=== PATIENT | male | born 1990 | race Caucasian/White ===

== ENCOUNTER 2022-11-23 22:42 | Emergency (ER) | payer BC ==
[2022-11-23] MEDS ORDERED: Sodium Chloride 0.9% 1,000 ML IV ONE (22:47)
[2022-11-23] MEDS ORDERED: Ketorolac 30 MG/ML SDV IVPUSH ONE (22:47)
[2022-11-23] MEDS ORDERED: Morphine 4 MG/ML Syringe IVPUSH ONE (22:47)
[2022-11-23] MEDS ORDERED: Ondansetron 4 MG/2 ML SDV IVPUSH ONE (22:47)
[2022-11-23 23:04] LABS: BASOPHILS PERCENT AUTO 0.4 % (0.0-1.5); EOSINOPHILS ABSOLUTE AUTO 0.2 K/uL (0.0-0.7); HEMATOCRIT 48.4 % (38.0-50.0); HEMOGLOBIN 17.3 g/dL (13.0-17.0); LYMPHOCYTES ABSOLUTE AUTO 4.3 K/uL (0.6-2.4); LYMPHOCYTES PERCENT AUTO 44.8 % (16.0-40.0); MEAN CORPUSCULAR HEMOGLOBIN 34.1 pg (27.0-32.0); MEAN CORPUSCULAR HGB CONC 35.7 g/dL (31.0-37.0); MEAN CORPUSCULAR VOLUME 95.5 fL (80.0-98.0); MONOCYTES ABSOLUTE AUTO 1.1 K/uL (0.0-0.8); NEUTROPHILS PERCENT AUTO 41.8 % (48.0-80.0); PLATELET COUNT,PLT 221 K/uL (150-400); RED BLOOD CELL COUNT 5.07 M/uL (4.50-5.90); WHITE BLOOD CELL COUNT,WBC 9.53 K/uL (4.0-11.0)
[2022-11-23] MEDS ORDERED: Iopamidol 755 MG/ML 500 ML Multipack Bottle IVPUSH ONE (23:04)
[2022-11-23] MEDS ORDERED: LORazepam 2 MG/ML SDV IVPUSH ONE (23:32)
[2022-11-23 23:34] LABS: APPEARANCE,URINE CLEAR; BILIRUBIN,URINE NEGATIVE (NEGATIVE); COLOR,URINE YELLOW; GLUCOSE,URINE NEGATIVE (NEGATIVE); KETONES,URINE TRACE mg/dL (NEGATIVE); LEUKOCYTE ESTERASE,URINE NEGATIVE (NEGATIVE); NITRITE,URINE NEGATIVE (NEGATIVE); OCCULT BLOOD,URINE SMALL (NEGATIVE); PH,URINE 7.5 (5.0-8.0); PROTEIN,URINE 30 mg/dL (NEGATIVE); UROBILINOGEN,URINE 0.2 EU/dL (<2.0)
[2022-11-23 23:45] LABS: BACTERIA,URINE RARE (NEGATIVE); EPITHELIAL CELLS,URINE OCCASIONAL (NONE-FEW); WBC,URINE 0-2 (0-5/HPF)
[2022-11-23 23:46] LABS: A/G RATIO 1.2 (0.9-1.6); ALBUMIN 4.4 g/dL (3.4-5.0); BILIRUBIN TOTAL 0.4 mg/dL (0.2-1.0); CALCIUM 9.3 mg/dL (8.5-10.1); CARBON DIOXIDE,CO2 24.4 mmol/L (21.0-32.0); CREATININE 1.1 mg/dL (0.8-1.3); EST CRCL DRUG DOSING (CG) 92.41 mL/min; POTASSIUM,K 4.2 mmol/L (3.5-5.1)
== END 2022-11-24 00:45 | disposition home or self-care (01) ==
LOC: MW.ED 22:42
DX: R10.31 Right lower quadrant pain (principal)
CPT/HCPCS: 36415; 74177; 80053; 80307; 81001; 85025; 96361; 96374; 96375; 99284; J1885; J2060; J2270; J2405; J7030; Q9967

== ENCOUNTER 2023-01-28 01:32 | Emergency (ER) | payer SELFPAY ==
[2023-01-28] MEDS ORDERED: Ondansetron 4 MG/2 ML SDV IVPUSH ONE (01:36)
[2023-01-28] MEDS ORDERED: Morphine 4 MG/ML Syringe IVPUSH ONE (01:36)
[2023-01-28] MEDS ORDERED: Lactated Ringers 1,000 ML IV ONE (01:37)
[2023-01-28 01:43] LABS: BASOPHILS PERCENT AUTO 0.4 % (0.0-1.5); EOSINOPHILS ABSOLUTE AUTO 0.2 K/uL (0.0-0.7); EOSINOPHILS PERCENT AUTO 2.6 % (0.0-7.0); HEMATOCRIT 46.2 % (38.0-50.0); HEMOGLOBIN 16.2 g/dL (13.0-17.0); LYMPHOCYTES ABSOLUTE AUTO 3.6 K/uL (0.6-2.4); LYMPHOCYTES PERCENT AUTO 42.6 % (16.0-40.0); MEAN CORPUSCULAR HEMOGLOBIN 34.6 pg (27.0-32.0); MEAN CORPUSCULAR HGB CONC 35.1 g/dL (31.0-37.0); MEAN CORPUSCULAR VOLUME 98.7 fL (80.0-98.0); MONOCYTES ABSOLUTE AUTO 0.6 K/uL (0.0-0.8); MONOCYTES PERCENT AUTO 6.5 % (0.0-15.0); NEUTROPHILS ABSOLUTE AUTO 4.1 K/uL (1.4-5.7); NEUTROPHILS PERCENT AUTO 47.9 % (48.0-80.0); NRBC ABSOLUTE 0 K/uL; PLATELET COUNT,PLT 183 K/uL (150-400); RED BLOOD CELL COUNT 4.68 M/uL (4.50-5.90); WHITE BLOOD CELL COUNT,WBC 8.46 K/uL (4.0-11.0)
[2023-01-28 02:06] LABS: A/G RATIO 1.1 (0.9-1.6); BILIRUBIN TOTAL 0.5 mg/dL (0.2-1.0); CALCIUM 8.6 mg/dL (8.5-10.1); CARBON DIOXIDE,CO2 24.7 mmol/L (21.0-32.0); EST CRCL DRUG DOSING (CG) 105.07 mL/min; POTASSIUM,K 4.1 mmol/L (3.5-5.1); PROTEIN TOTAL,TP 7.6 g/dL (6.4-8.2)
[2023-01-28] MEDS ORDERED: Iopamidol 755 MG/ML 500 ML Multipack Bottle IVPUSH STA (02:11)
[2023-01-28] MEDS ORDERED: Acetaminophen/oxyCODONE 325-5 MG Tab PO ONE (03:25)
[2023-01-28] MEDS ORDERED: Ibuprofen 600 MG Tab PO ONE (03:25)
== END 2023-01-28 03:43 | disposition home or self-care (01) ==
LOC: MW.ED 01:32
DX: S39.92XA Unspecified injury of lower back, initial encounter (principal); R93.5 Abnormal findings on diagnostic imaging of other abdominal regions, including retroperitoneum; W10.8XXA Fall (on) (from) other stairs and steps, initial encounter
CPT/HCPCS: 36415; 70450; 71260; 72125; 72128; 72131; 74177; 80053; 80307; 85025; 96361; 96374; 96375; 99284; J2270; J2405; J7120; Q9967

== ENCOUNTER 2023-04-18 03:02 | Inpatient (IN) | payer SELFPAY ==
[2023-04-18] MEDS ORDERED: Sodium Chloride 0.9% 2.5 ML Syringe FLUSH PRN ×2 (03:13→07:53)
[2023-04-18] MEDS ORDERED: Sodium Chloride 0.9% 10 ML Syringe FLUSH PRN ×2 (03:13→07:53)
[2023-04-18] MEDS ORDERED: Sodium Chloride 0.9% 1,000 ML IV ONE (03:14)
[2023-04-18] MEDS ORDERED: Morphine 4 MG/ML Syringe IVPUSH ONE ×2 (03:14→07:45)
[2023-04-18 03:30] LABS: BASOPHILS ABSOLUTE AUTO 0.07 K/uL (0.00-0.20); BASOPHILS PERCENT AUTO 0.8 % (0.0-1.0); EOSINOPHILS ABSOLUTE AUTO 0.28 K/uL (0.00-0.45); EOSINOPHILS PERCENT AUTO 3.1 % (0.0-6.0); HEMATOCRIT 49.5 % (42.0-52.0); HEMOGLOBIN 17.6 g/dL (14.0-18.0); IMMATURE GRAN ABSOLUTE AUTO 0.07 K/uL (0.00-0.05); IMMATURE GRAN PERCENT AUTO 0.8 % (0.0-0.4); LYMPHOCYTES ABSOLUTE AUTO 3.39 K/uL (1.00-4.80); LYMPHOCYTES PERCENT AUTO 37.7 % (24.0-44.0); MEAN CORPUSCULAR HEMOGLOBIN 34.6 pg (28.0-32.0); MEAN CORPUSCULAR HGB CONC 35.6 g/dL (32.0-36.0); MEAN CORPUSCULAR VOLUME 97.2 fL (83.0-99.0); MEAN PLATELET VOLUME 9.5 fL (9.4-12.4); MONOCYTES ABSOLUTE AUTO 0.57 K/uL (0.00-0.80); MONOCYTES PERCENT AUTO 6.3 % (0.0-8.0); NEUTROPHILS ABSOLUTE AUTO 4.62 K/uL (1.80-7.70); NEUTROPHILS PERCENT AUTO 51.3 % (41.0-71.0); PLATELET COUNT,PLT 218 K/uL (150-400); RED BLOOD CELL COUNT 5.09 M/uL (4.52-5.90)
[2023-04-18 03:51] LABS: ALBUMIN 4.2 g/dL (3.4-5.0); BILIRUBIN TOTAL 0.3 mg/dL (0.2-1.0); CREATININE 1.1 mg/dL (0.8-1.3); EST CRCL DRUG DOSING (CG) 98.62 mL/min; POTASSIUM,K 3.8 mmol/L (3.5-5.1); PROTEIN TOTAL,TP 8.3 g/dL (6.4-8.2)
[2023-04-18] MEDS ORDERED: Morphine 4 MG/ML Syringe IM ONE (04:13)
[2023-04-18] MEDS ORDERED: Naloxone 0.4 MG/ML SDV IVPUSH PRN ×3 (04:13→13:26)
[2023-04-18] MEDS ORDERED: Iopamidol 755 Mg/ML 100 ML Bottle IVPUSH ONE (04:21)
[2023-04-18 04:49] LABS: APPEARANCE,URINE CLEAR; BILIRUBIN,URINE NEGATIVE (NEGATIVE); COLOR,URINE YELLOW; GLUCOSE,URINE NEGATIVE (NEGATIVE); KETONES,URINE TRACE mg/dL (NEGATIVE); LEUKOCYTE ESTERASE,URINE NEGATIVE (NEGATIVE); NITRITE,URINE NEGATIVE (NEGATIVE); OCCULT BLOOD,URINE NEGATIVE (NEGATIVE); PH,URINE 7.5 (5.0-8.0); PROTEIN,URINE NEGATIVE (NEGATIVE); UROBILINOGEN,URINE 0.2 EU/dL (<2.0)
[2023-04-18] MEDS ORDERED: Lactated Ringers 1,000 ML IV SCH (06:30)
[2023-04-18] MEDS ORDERED: Nicotine 21 MG/24 Hr Patch TRDERM ONE (06:30)
[2023-04-18] MEDS ORDERED: Ondansetron 4 MG/2 ML SDV IVPUSH ONE ×2 (06:32→07:51)
[2023-04-18] MEDS ORDERED: LORazepam 2 MG/ML SDV IVPUSH PRN (07:55)
[2023-04-18] MEDS ORDERED: Heparin Sodium 5,000 Units/ML Vial SUBCUT SCH (08:00)
[2023-04-18] MEDS: Morphine 4 MG/ML Syringe IVPUSH PRN ×2 (08:11→10:31)
[2023-04-18] MEDS: Ondansetron 4 MG/2 ML SDV IVPUSH PRN ×3 (08:12→19:55)
[2023-04-18] MEDS ORDERED: Thiamine 100 MG in Sodium Chloride 0.9% 100 ML IV SCH (09:00)
[2023-04-18] MEDS: Pantoprazole 40 MG in Sodium Chloride 0.9% 10 ML IVPUSH SCH (09:13)
[2023-04-18] MEDS: Thiamine 200 MG/2 ML MDV IVPUSH SCH (09:15)
[2023-04-18] MEDS: Folic Acid 1 MG/0.2 ML UD Syringe IV SCH (09:16)
[2023-04-18] MEDS: Phenol 1.4% Oral Spray 177 ML Bottle MUCMEM PRN ×4 (10:38→22:31)
[2023-04-18] MEDS: HYDROmorphone 1 MG/ML Syringe IVPUSH PRN ×3 (12:55→19:45)
[2023-04-18] MEDS ORDERED: Ropivacaine 0.5% 5 MG/ML 30 ML SDV ONE (13:04)
[2023-04-18] MEDS ORDERED: Ketamine 500 mg/10 ML MDV ONE (13:05)
[2023-04-18] MEDS ORDERED: Propofol 200 MG/20 ML SDV ONE (13:05)
[2023-04-18] MEDS ORDERED: fentaNYL 250 MCG/5 ML SDV ONE (13:05)
[2023-04-18] MEDS ORDERED: Water For Injection, Sterile 40 ML ONE ×2 (13:14→13:16)
[2023-04-18] MEDS ORDERED: Midazolam 1 MG/ML 2 ML SDV ONE (13:16)
[2023-04-18] MEDS ORDERED: Metoclopramide 10 MG/2 ML SDV IVPUSH PRN (13:26)
[2023-04-18] MEDS ORDERED: Morphine 2 MG/ML SYRINGE IVPUSH PRN (13:26)
[2023-04-18] MEDS ORDERED: droPERidol 5 MG/2 ML SDV IVPUSH PRN (13:26)
[2023-04-18] MEDS ORDERED: HYDROmorphone 1 MG/ML Syringe IVPUSH PRN (13:26)
[2023-04-18] MEDS ORDERED: fentaNYL 50 MCG/ML SDV IVPUSH PRN (13:26)
[2023-04-18] MEDS ORDERED: Albuterol 0.083% 2.5 MG/3 ML Neb Soln NEB PRN (13:26)
[2023-04-18] MEDS ORDERED: Ondansetron 4 MG/2 ML SDV IVPUSH PRN (13:26)
[2023-04-18 13:27] LABS: LACTIC ACID 2.1 mmol/L (0.4-2.0)
[2023-04-18] MEDS ORDERED: Lactated Ringers 1,000 ML IV ONE (13:29)
[2023-04-18] MEDS ORDERED: Bupivacaine 0.5% 30 ML SDV ONE (13:51)
[2023-04-18] MEDS ORDERED: Lidocaine 2% 11 ML Jelly Filled Syringe ONE (14:01)
[2023-04-18] MEDS ORDERED: cefOXitin 1 GM Vial ONE (14:15)
[2023-04-18] MEDS ORDERED: Sugammadex Sodium 200 MG/2 ML VIAL ONE (14:48)
[2023-04-18 15:12] LABS: BODY FLUID TYPE PER
[2023-04-18 15:39] LABS: APPEARANCE,BODY FLUID CLEAR; COLOR,BODY FLUID YELLOW; MONONUCLEAR, BODY FLUID 85.5 %; POLYMORPHONUCLEAR, BODY FLUID 14.5 %; RBC,BODY FLUID < 3000 /uL; WBC BODY FLUID 575 /uL
[2023-04-18] MEDS: Lactated Ringers 1,000 ML IV SCH ×3 (15:59→23:57)
[2023-04-18] MEDS ORDERED: cefTRIAXone 2 GM in Sodium Chloride 0.9% 50 ML IV ONE (16:00)
[2023-04-18 16:07] LABS: GLUCOSE,BODY FLUID 102 mg/dL; LACTATE DEHYDROGENASE,BODY FL 176 U/L; PROTEIN,BODY FLUID 5.1 g/dL; TRIGLYCERIDES,BODY FLUID 36 mg/dL
[2023-04-19] MEDS: HYDROmorphone 1 MG/ML Syringe IVPUSH PRN ×4 (00:42→23:21)
[2023-04-19] MEDS: Ondansetron 4 MG/2 ML SDV IVPUSH PRN ×4 (00:43→23:23)
[2023-04-19] MEDS: Phenol 1.4% Oral Spray 177 ML Bottle MUCMEM PRN ×2 (02:07→08:14)
[2023-04-19 06:40] LABS: BASOPHILS ABSOLUTE AUTO 0.03 K/uL (0.00-0.20); BASOPHILS PERCENT AUTO 0.4 % (0.0-1.0); EOSINOPHILS ABSOLUTE AUTO 0.17 K/uL (0.00-0.45); EOSINOPHILS PERCENT AUTO 2.1 % (0.0-6.0); HEMATOCRIT 43.4 % (42.0-52.0); HEMOGLOBIN 15.2 g/dL (14.0-18.0); IMMATURE GRAN ABSOLUTE AUTO 0.02 K/uL (0.00-0.05); IMMATURE GRAN PERCENT AUTO 0.3 % (0.0-0.4); LYMPHOCYTES ABSOLUTE AUTO 1.42 K/uL (1.00-4.80); MEAN CORPUSCULAR HEMOGLOBIN 34.3 pg (28.0-32.0); MEAN PLATELET VOLUME 9.6 fL (9.4-12.4); MONOCYTES ABSOLUTE AUTO 0.75 K/uL (0.00-0.80); MONOCYTES PERCENT AUTO 9.5 % (0.0-8.0); NEUTROPHILS ABSOLUTE AUTO 5.52 K/uL (1.80-7.70); NEUTROPHILS PERCENT AUTO 69.7 % (41.0-71.0); PLATELET COUNT,PLT 167 K/uL (150-400); RED BLOOD CELL COUNT 4.43 M/uL (4.52-5.90); WHITE BLOOD CELL COUNT,WBC 7.91 K/uL (3.9-11.3)
[2023-04-19 07:03] LABS: ALBUMIN 3.4 g/dL (3.4-5.0); BILIRUBIN TOTAL 0.8 mg/dL (0.2-1.0); CALCIUM 8.6 mg/dL (8.5-10.1); CARBON DIOXIDE,CO2 27.3 mmol/L (21.0-32.0); EST CRCL DRUG DOSING (CG) 105.07 mL/min; MAGNESIUM 1.8 mg/dL (1.8-2.4); PHOSPHORUS 2.5 mg/dL (2.6-4.7); POTASSIUM,K 3.5 mmol/L (3.5-5.1); PROTEIN TOTAL,TP 6.7 g/dL (6.4-8.2)
[2023-04-19] MEDS: Lactated Ringers 1,000 ML IV SCH ×2 (08:38→17:01)
[2023-04-19] MEDS: Pantoprazole 40 MG in Sodium Chloride 0.9% 10 ML IVPUSH SCH (08:40)
[2023-04-19] MEDS: Folic Acid 1 MG/0.2 ML UD Syringe IV SCH (08:43)
[2023-04-19] MEDS: Thiamine 200 MG/2 ML MDV IVPUSH SCH (08:43)
[2023-04-19] MEDS: Nicotine 21 MG/24 Hr Patch TRDERM SCH (08:55)
[2023-04-20] MEDS: Lactated Ringers 1,000 ML IV SCH ×2 (01:00→08:10)
[2023-04-20 06:51] LABS: BASOPHILS ABSOLUTE AUTO 0.02 K/uL (0.00-0.20); BASOPHILS PERCENT AUTO 0.3 % (0.0-1.0); EOSINOPHILS ABSOLUTE AUTO 0.22 K/uL (0.00-0.45); EOSINOPHILS PERCENT AUTO 3.3 % (0.0-6.0); HEMATOCRIT 40.9 % (42.0-52.0); HEMOGLOBIN 14.4 g/dL (14.0-18.0); IMMATURE GRAN ABSOLUTE AUTO 0.02 K/uL (0.00-0.05); IMMATURE GRAN PERCENT AUTO 0.3 % (0.0-0.4); LYMPHOCYTES ABSOLUTE AUTO 1.85 K/uL (1.00-4.80); LYMPHOCYTES PERCENT AUTO 27.7 % (24.0-44.0); MEAN CORPUSCULAR HEMOGLOBIN 34.7 pg (28.0-32.0); MEAN CORPUSCULAR HGB CONC 35.2 g/dL (32.0-36.0); MEAN CORPUSCULAR VOLUME 98.6 fL (83.0-99.0); MEAN PLATELET VOLUME 10.3 fL (9.4-12.4); MONOCYTES ABSOLUTE AUTO 0.58 K/uL (0.00-0.80); MONOCYTES PERCENT AUTO 8.7 % (0.0-8.0); NEUTROPHILS ABSOLUTE AUTO 3.98 K/uL (1.80-7.70); NEUTROPHILS PERCENT AUTO 59.7 % (41.0-71.0); PLATELET COUNT,PLT 147 K/uL (150-400); RED BLOOD CELL COUNT 4.15 M/uL (4.52-5.90); WHITE BLOOD CELL COUNT,WBC 6.67 K/uL (3.9-11.3)
[2023-04-20 07:38] LABS: A/G RATIO 0.9 (0.9-1.6); BILIRUBIN TOTAL 0.8 mg/dL (0.2-1.0); CALCIUM 8.2 mg/dL (8.5-10.1); CARBON DIOXIDE,CO2 26.6 mmol/L (21.0-32.0); CREATININE 0.9 mg/dL (0.8-1.3); EST CRCL DRUG DOSING (CG) 116.74 mL/min; MAGNESIUM 1.8 mg/dL (1.8-2.4); PHOSPHORUS 2.5 mg/dL (2.6-4.7); POTASSIUM,K 3.6 mmol/L (3.5-5.1); PROTEIN TOTAL,TP 6.2 g/dL (6.4-8.2)
[2023-04-20] MEDS: Thiamine 200 MG/2 ML MDV IVPUSH SCH (08:10)
[2023-04-20] MEDS: Pantoprazole 40 MG in Sodium Chloride 0.9% 10 ML IVPUSH SCH (08:11)
[2023-04-20] MEDS: Nicotine 21 MG/24 Hr Patch TRDERM SCH (08:17)
[2023-04-20] MEDS: Folic Acid 1 MG/0.2 ML UD Syringe IV SCH (08:21)
[2023-04-20] MEDS ORDERED: Phosphorus #1 250 MG Tab PO SCH (09:00)
== END 2023-04-20 12:55 | disposition home or self-care (01) | DRG 327 ==
LOC: MW.ED 03:02 → MW.MS 06:16
PROVIDERS: ADMIT Internal Medicine; ATTEND Internal Medicine
PROC: 0DJ04ZZ Inspection of Upper Intestinal Tract, Percutaneous Endoscopic Approach (ICD-10-PCS; 2023-04-18)
PROC: 0D9670Z Drainage of Stomach with Drainage Device, Via Natural or Artificial Opening (ICD-10-PCS; principal; 2023-04-18 13:15)
DX: K56.609 Unspecified intestinal obstruction, unspecified as to partial versus complete obstruction (principal); F10.139 Alcohol abuse with withdrawal, unspecified; R18.8 Other ascites; R10.13 Epigastric pain; F17.210 Nicotine dependence, cigarettes, uncomplicated; K76.0 Fatty (change of) liver, not elsewhere classified
CPT/HCPCS: 36415; 43752; 74177; 74177-26; 74250; 74250-26; 80053; 80307; 81003; 82945; 82947; 83605; 83615; 83690; 83735; 84100; 84157; 84478; 85025; 86850; 86900; 86901; 87070; 87205; 89050; 96361; 96372; 96374; 99222; 99232; 99239; 99284; 99285-25; A9270-GY; C9113; J0694; J0696; J1170; J1644; J2060; J2250; J2270; J2405; J2704; J2795; J3010; J3411; J3490; J7030; J7120; Q9967

== ENCOUNTER 2023-05-10 15:23 | Observation (INO) | payer SELFPAY ==
[2023-05-10] MEDS ORDERED: Sodium Chloride 0.9% 2.5 ML Syringe FLUSH PRN (15:45)
[2023-05-10] MEDS ORDERED: Sodium Chloride 0.9% 10 ML Syringe FLUSH PRN (15:45)
[2023-05-10] MEDS ORDERED: Lactated Ringers 1,000 ML IV STA ×2 (15:46→16:16)
[2023-05-10 15:52] LABS: BASOPHILS ABSOLUTE AUTO 0.08 K/uL (0.00-0.20); EOSINOPHILS ABSOLUTE AUTO 0.07 K/uL (0.00-0.45); EOSINOPHILS PERCENT AUTO 0.8 % (0.0-6.0); HEMATOCRIT 48.1 % (42.0-52.0); HEMOGLOBIN 17.2 g/dL (14.0-18.0); IMMATURE GRAN ABSOLUTE AUTO 0.07 K/uL (0.00-0.05); IMMATURE GRAN PERCENT AUTO 0.8 % (0.0-0.4); LYMPHOCYTES PERCENT AUTO 26.5 % (24.0-44.0); MEAN CORPUSCULAR HEMOGLOBIN 34.3 pg (28.0-32.0); MEAN CORPUSCULAR HGB CONC 35.8 g/dL (32.0-36.0); MEAN CORPUSCULAR VOLUME 95.8 fL (83.0-99.0); MONOCYTES PERCENT AUTO 9.6 % (0.0-8.0); NEUTROPHILS ABSOLUTE AUTO 5.09 K/uL (1.80-7.70); NEUTROPHILS PERCENT AUTO 61.3 % (41.0-71.0); PLATELET COUNT,PLT 196 K/uL (150-400); RED BLOOD CELL COUNT 5.02 M/uL (4.52-5.90); WHITE BLOOD CELL COUNT,WBC 8.31 K/uL (3.9-11.3)
[2023-05-10] MEDS ORDERED: Morphine 4 MG/ML Syringe IVPUSH STA (15:52)
[2023-05-10] MEDS ORDERED: Ondansetron 4 MG/2 ML SDV IVPUSH STA (15:52)
[2023-05-10 16:15] LABS: INR < 0.93 (0.86-1.11); PTT,PARTIAL THROMBOPLSTIN TIME 25.9 SEC (23.9-30.7)
[2023-05-10] MEDS ORDERED: Piperacillin/Tazobactam 3.375 GM in Sodium Chloride 0.9% 100 ML IV STA (16:17)
[2023-05-10] MEDS ORDERED: HYDROmorphone 1 MG/ML Syringe IVPUSH STA (16:17)
[2023-05-10 16:20] LABS: A/G RATIO 1.2 (0.9-1.6); ALBUMIN 4.6 g/dL (3.4-5.0); BILIRUBIN TOTAL 0.5 mg/dL (0.2-1.0); CALCIUM 9.8 mg/dL (8.5-10.1); CARBON DIOXIDE,CO2 16.8 mmol/L (21.0-32.0); CREATININE 1.3 mg/dL (0.8-1.3); EST CRCL DRUG DOSING (CG) 80.82 mL/min; MAGNESIUM 2.1 mg/dL (1.8-2.4); POTASSIUM,K 3.8 mmol/L (3.5-5.1); PROTEIN TOTAL,TP 8.4 g/dL (6.4-8.2)
[2023-05-10] MEDS ORDERED: Iopamidol 755 MG/ML 500 ML Multipack Bottle IVPUSH STA (16:46)
[2023-05-10] MEDS ORDERED: Nicotine 21 MG/24 Hr Patch TRDERM STA (17:36)
[2023-05-10] MEDS ORDERED: Thiamine 100 MG in Sodium Chloride 0.9% 100 ML IV STA (17:59)
[2023-05-10] MEDS ORDERED: Dextrose 5%-0.9% NaCl 1,000 ML IV SCH (18:00)
[2023-05-10 18:47] LABS: CORONAVIRUS COVID-19 NAA NEGATIVE (NEGATIVE); INFLUENZA A NAA NEGATIVE (NEGATIVE); INFLUENZA B NAA NEGATIVE (NEGATIVE)
[2023-05-10 20:21] LABS: APPEARANCE,URINE CLEAR; BILIRUBIN,URINE NEGATIVE (NEGATIVE); COLOR,URINE YELLOW; GLUCOSE,URINE NEGATIVE (NEGATIVE); KETONES,URINE 15 mg/dL (NEGATIVE); LEUKOCYTE ESTERASE,URINE NEGATIVE (NEGATIVE); NITRITE,URINE NEGATIVE (NEGATIVE); OCCULT BLOOD,URINE NEGATIVE (NEGATIVE); PH,URINE 5.5 (5.0-8.0); PROTEIN,URINE NEGATIVE (NEGATIVE); UROBILINOGEN,URINE 0.2 EU/dL (<2.0)
== END 2023-05-10 22:03 ==
LOC: MW.ED 15:23 → MW.MS 20:15
PROVIDERS: ADMIT Internal Medicine; ATTEND Internal Medicine
DX: E87.29 Other acidosis (principal); E11.9 Type 2 diabetes mellitus without complications; F41.9 Anxiety disorder, unspecified; Z20.822 Contact with and (suspected) exposure to COVID-19
CPT/HCPCS: 0240U; 36415; 74177; 74177-26; 80053; 81003; 83605; 83690; 83735; 84484; 85025; 85610; 85730; 87040; 93005; 93010; 99284; A9270-GY; J1170; J2270; J2405; J2543; J3411; J3490; J7042; J7120; Q9967

== ENCOUNTER 2023-05-22 09:16 | Day surgery (SDC) | payer SELFPAY ==
[~2023-05-22 09:16] MED LIST: Lactated Ringers 1,000 ML IV SCH; Sodium Chloride 0.9% 10 ML Syringe FLUSH PRN; Sodium Chloride 0.9% 2.5 ML Syringe FLUSH PRN; Sodium Chloride 0.9% 20 ML SDV IV PRN
[2023-05-22] MEDS ORDERED: Propofol 200 MG/20 ML SDV ONE ×2 (12:04→12:21)
[2023-05-22] MEDS ORDERED: Lidocaine 2% 5 ML SDV ONE (12:07)
== END 2023-05-22 13:35 | disposition home or self-care (01) ==
LOC: MW.SDS 09:16
PROVIDERS: ATTEND Surgery
DX: K29.50 Unspecified chronic gastritis without bleeding (principal); D12.0 Benign neoplasm of cecum; D12.3 Benign neoplasm of transverse colon; K57.30 Diverticulosis of large intestine without perforation or abscess without bleeding; K52.9 Noninfective gastroenteritis and colitis, unspecified; F17.200 Nicotine dependence, unspecified, uncomplicated; K56.600 Partial intestinal obstruction, unspecified as to cause; R19.4 Change in bowel habit
CPT/HCPCS: 43239; 45380; J2704; J7120; 00813; J3490

== ENCOUNTER 2023-12-14 16:57 | Emergency (ER) | payer SELFPAY ==
[2023-12-14] MEDS: Sodium Chloride 0.9% 1,000 ML IV ONE (17:28)
[2023-12-14] MEDS: Ondansetron 4 MG/2 ML SDV IVPUSH ONE (17:28)
[2023-12-14 17:35] LABS: BASOPHILS ABSOLUTE AUTO 0.05 K/uL (0.00-0.20); BASOPHILS PERCENT AUTO 0.7 % (0.0-1.0); EOSINOPHILS ABSOLUTE AUTO 0.04 K/uL (0.00-0.45); EOSINOPHILS PERCENT AUTO 0.5 % (0.0-6.0); HEMATOCRIT 44.5 % (42.0-52.0); HEMOGLOBIN 16.2 g/dL (14.0-18.0); IMMATURE GRAN ABSOLUTE AUTO 0.03 K/uL (0.00-0.05); IMMATURE GRAN PERCENT AUTO 0.4 % (0.0-0.4); LYMPHOCYTES ABSOLUTE AUTO 1.81 K/uL (1.00-4.80); LYMPHOCYTES PERCENT AUTO 24.6 % (24.0-44.0); MEAN CORPUSCULAR HEMOGLOBIN 34.5 pg (28.0-32.0); MEAN CORPUSCULAR HGB CONC 36.4 g/dL (32.0-36.0); MEAN CORPUSCULAR VOLUME 94.9 fL (83.0-99.0); MEAN PLATELET VOLUME 9.4 fL (9.4-12.4); MONOCYTES ABSOLUTE AUTO 0.63 K/uL (0.00-0.80); MONOCYTES PERCENT AUTO 8.6 % (0.0-8.0); NEUTROPHILS PERCENT AUTO 65.2 % (41.0-71.0); PLATELET COUNT,PLT 200 K/uL (150-400); RED BLOOD CELL COUNT 4.69 M/uL (4.52-5.90); WHITE BLOOD CELL COUNT,WBC 7.36 K/uL (3.9-11.3)
[2023-12-14 17:57] LABS: A/G RATIO 1.2 (0.9-1.6); ALBUMIN 4.4 g/dL (3.4-5.0); BILIRUBIN TOTAL 0.7 mg/dL (0.2-1.0); CALCIUM 8.8 mg/dL (8.5-10.1); CARBON DIOXIDE,CO2 19.6 mmol/L (21.0-32.0); CREATININE 1.1 mg/dL (0.8-1.3); EST CRCL DRUG DOSING (CG) 91.55 mL/min; POTASSIUM,K 3.2 mmol/L (3.5-5.1); PROTEIN TOTAL,TP 8.1 g/dL (6.4-8.2)
[2023-12-14] MEDS: Ketorolac 30 MG/ML SDV IVPUSH ONE (18:22)
== END 2023-12-14 19:08 | disposition home or self-care (01) ==
LOC: MW.ED 16:57
DX: E87.6 Hypokalemia (principal); E86.0 Dehydration; E11.9 Type 2 diabetes mellitus without complications; Z91.012 Allergy to eggs
CPT/HCPCS: 36415; 80053; 82947; 85025; 93005; 96361; 96374; 96375; 99284; J1885; J2405; J7030; 93010; 99285

== ENCOUNTER 2023-12-26 15:15 | Emergency (ER) | payer SELFPAY | END 2023-12-26 17:29 | disposition home or self-care (01) | LOC: MW.ED 15:15 | DX: S60.221A Contusion of right hand, initial encounter (principal); E11.9 Type 2 diabetes mellitus without complications; Z91.018 Allergy to other foods; W01.0XXA Fall on same level from slipping, tripping and stumbling without subsequent striking against object, initial encounter; Y92.89 Other specified places as the place of occurrence of the external cause; Y99.0 Civilian activity done for income or pay | CPT/HCPCS: 73130-26-RT; 73130-RT; 99283 ==

== ENCOUNTER 2024-02-12 10:13 | Emergency (ER) | payer SELFPAY | END 2024-02-12 11:01 | disposition left against medical advice (07) | LOC: MW.ED 10:13 | DX: Z53.21 Procedure and treatment not carried out due to patient leaving prior to being seen by health care provider (principal) ==

== ENCOUNTER 2024-02-12 12:23 | Emergency (ER) | payer SELFPAY ==
[2024-02-12] MEDS: Cyclobenzaprine 10 MG Tab PO STA (13:18)
== END 2024-02-12 13:45 | disposition left against medical advice (07) ==
LOC: MW.ED 12:23
DX: M79.642 Pain in left hand (principal); E11.9 Type 2 diabetes mellitus without complications; Z91.012 Allergy to eggs; Z75.8 Other problems related to medical facilities and other health care
CPT/HCPCS: 73130; 99284; A9270

== ENCOUNTER 2024-02-13 13:17 | Emergency (ER) | payer SELFPAY ==
[2024-02-13] MEDS: Midazolam 1 MG/ML 2 ML SDV IVPUSH ONE (14:49)
[2024-02-13] MEDS: LORazepam 2 MG/ML SDV IM ONE ×3 (14:49→17:01)
[2024-02-13 14:55] LABS: BASOPHILS ABSOLUTE AUTO 0.06 K/uL (0.00-0.20); BASOPHILS PERCENT AUTO 0.7 % (0.0-1.0); EOSINOPHILS ABSOLUTE AUTO 0.02 K/uL (0.00-0.45); EOSINOPHILS PERCENT AUTO 0.2 % (0.0-6.0); HEMATOCRIT 47.3 % (42.0-52.0); HEMOGLOBIN 16.9 g/dL (14.0-18.0); IMMATURE GRAN ABSOLUTE AUTO 0.02 K/uL (0.00-0.05); IMMATURE GRAN PERCENT AUTO 0.2 % (0.0-0.4); LYMPHOCYTES ABSOLUTE AUTO 1.49 K/uL (1.00-4.80); LYMPHOCYTES PERCENT AUTO 18.1 % (24.0-44.0); MEAN CORPUSCULAR HEMOGLOBIN 34.5 pg (28.0-32.0); MEAN CORPUSCULAR HGB CONC 35.7 g/dL (32.0-36.0); MEAN CORPUSCULAR VOLUME 96.5 fL (83.0-99.0); MEAN PLATELET VOLUME 9.4 fL (9.4-12.4); MONOCYTES PERCENT AUTO 7.3 % (0.0-8.0); NEUTROPHILS ABSOLUTE AUTO 6.02 K/uL (1.80-7.70); NEUTROPHILS PERCENT AUTO 73.5 % (41.0-71.0); PLATELET COUNT,PLT 177 K/uL (150-400); WHITE BLOOD CELL COUNT,WBC 8.21 K/uL (3.9-11.3)
[2024-02-13 15:10] LABS: INR 0.96 (0.86-1.11)
[2024-02-13 15:26] LABS: ALBUMIN 4.3 g/dL (3.4-5.0); BILIRUBIN TOTAL 0.8 mg/dL (0.2-1.0); CALCIUM 9.4 mg/dL (8.5-10.1); CREATININE 1.1 mg/dL (0.8-1.3); EST CRCL DRUG DOSING (CG) 91.55 mL/min; POTASSIUM,K 3.9 mmol/L (3.5-5.1); PROTEIN TOTAL,TP 8.4 g/dL (6.4-8.2)
[2024-02-13 15:28] LABS: A/G RATIO 1.1 (0.9-1.6)
== END 2024-02-13 18:54 | disposition home or self-care (01) ==
LOC: MW.ED 13:17
DX: G56.32 Lesion of radial nerve, left upper limb (principal); E11.9 Type 2 diabetes mellitus without complications; F17.210 Nicotine dependence, cigarettes, uncomplicated; Z91.012 Allergy to eggs
CPT/HCPCS: 36415; 70450; 70551; 71045; 72141; 73060; 73090; 80053; 85025; 85610; 96372; 99284; J2060

== ENCOUNTER 2024-03-10 14:37 | Emergency (ER) | payer SELFPAY | END 2024-03-10 18:18 | disposition left against medical advice (07) | LOC: MW.ED 14:37 | DX: Z53.21 Procedure and treatment not carried out due to patient leaving prior to being seen by health care provider (principal) ==

== ENCOUNTER 2024-04-04 00:49 | Emergency (ER) | payer SELFPAY ==
[2024-04-04 01:37] LABS: BASOPHILS ABSOLUTE AUTO 0.05 K/uL (0.00-0.20); BASOPHILS PERCENT AUTO 0.6 % (0.0-1.0); EOSINOPHILS ABSOLUTE AUTO 0.26 K/uL (0.00-0.45); EOSINOPHILS PERCENT AUTO 3.1 % (0.0-6.0); HEMATOCRIT 42.8 % (42.0-52.0); HEMOGLOBIN 15.4 g/dL (14.0-18.0); IMMATURE GRAN ABSOLUTE AUTO 0.05 K/uL (0.00-0.05); IMMATURE GRAN PERCENT AUTO 0.6 % (0.0-0.4); LYMPHOCYTES PERCENT AUTO 41.4 % (24.0-44.0); MEAN CORPUSCULAR HEMOGLOBIN 35.5 pg (28.0-32.0); MEAN CORPUSCULAR VOLUME 98.6 fL (83.0-99.0); MEAN PLATELET VOLUME 10.6 fL (9.4-12.4); MONOCYTES ABSOLUTE AUTO 0.84 K/uL (0.00-0.80); MONOCYTES PERCENT AUTO 9.9 % (0.0-8.0); NEUTROPHILS ABSOLUTE AUTO 3.76 K/uL (1.80-7.70); NEUTROPHILS PERCENT AUTO 44.4 % (41.0-71.0); PLATELET COUNT,PLT 115 K/uL (150-400); RED BLOOD CELL COUNT 4.34 M/uL (4.52-5.90); WHITE BLOOD CELL COUNT,WBC 8.46 K/uL (3.9-11.3)
[2024-04-04 02:15] LABS: A/G RATIO 1.1 (0.9-1.6); ALANINE AMINOTRANSFERASE,ALT 73 IU/L (14-63); ALBUMIN 3.8 g/dL (3.4-5.0); ALKALINE PHOSPHATASE 90 U/L (46-116); ASPARTATE AMNIOTRANSFERASE,AST 85 IU/L (15-37); BILIRUBIN TOTAL 0.4 mg/dL (0.2-1.0); BLOOD UREA NITROGEN,BUN 11 mg/dL (7.0-18.0); C-REACTIVE PROTEIN 0.19 mg/dL (<0.3); CALCIUM 8.9 mg/dL (8.5-10.1); CARBON DIOXIDE,CO2 23.4 mmol/L (21.0-32.0); CHLORIDE,CL 104 mmol/L (98-107); CREATININE 0.9 mg/dL (0.8-1.3); GLUCOSE RANDOM 100 mg/dL (74-106); POTASSIUM,K 3.1 mmol/L (3.5-5.1); PROTEIN TOTAL,TP 7.2 g/dL (6.4-8.2); SODIUM,NA 141 mmol/L (136-148)
[2024-04-04 02:16] LABS: ESTIMATED GFR 115 mL/min (>60); ETHANOL BLOOD MEDICAL 402 mg/dL
== END 2024-04-04 02:58 | disposition home or self-care (01) ==
LOC: MW.ED 00:49
DX: L40.9 Psoriasis, unspecified (principal); F10.120 Alcohol abuse with intoxication, uncomplicated; E11.9 Type 2 diabetes mellitus without complications; F17.210 Nicotine dependence, cigarettes, uncomplicated; Z91.012 Allergy to eggs; Z79.2 Long term (current) use of antibiotics; Z79.899 Other long term (current) drug therapy; Y90.8 Blood alcohol level of 240 mg/100 ml or more
CPT/HCPCS: 36415; 80053; 80307; 85025; 85652; 86140; 99283

== ENCOUNTER 2024-04-24 11:42 | Emergency (ER) | payer SELFPAY ==
[2024-04-24 12:11] LABS: BASOPHILS PERCENT AUTO 1.3 % (0.0-1.0); EOSINOPHILS ABSOLUTE AUTO 0.17 K/uL (0.00-0.45); EOSINOPHILS PERCENT AUTO 2.1 % (0.0-6.0); HEMATOCRIT 42.7 % (42.0-52.0); HEMOGLOBIN 15.4 g/dL (14.0-18.0); IMMATURE GRAN ABSOLUTE AUTO 0.05 K/uL (0.00-0.05); IMMATURE GRAN PERCENT AUTO 0.6 % (0.0-0.4); LYMPHOCYTES ABSOLUTE AUTO 2.04 K/uL (1.00-4.80); LYMPHOCYTES PERCENT AUTO 25.7 % (24.0-44.0); MEAN CORPUSCULAR HEMOGLOBIN 35.9 pg (28.0-32.0); MEAN CORPUSCULAR HGB CONC 36.1 g/dL (32.0-36.0); MEAN CORPUSCULAR VOLUME 99.5 fL (83.0-99.0); MEAN PLATELET VOLUME 9.5 fL (9.4-12.4); MONOCYTES ABSOLUTE AUTO 0.71 K/uL (0.00-0.80); MONOCYTES PERCENT AUTO 8.9 % (0.0-8.0); NEUTROPHILS ABSOLUTE AUTO 4.87 K/uL (1.80-7.70); NEUTROPHILS PERCENT AUTO 61.4 % (41.0-71.0); PLATELET COUNT,PLT 230 K/uL (150-400); RED BLOOD CELL COUNT 4.29 M/uL (4.52-5.90); WHITE BLOOD CELL COUNT,WBC 7.94 K/uL (3.9-11.3)
[2024-04-24 12:30] LABS: ACETAMINOPHEN <2.0 ug/mL; ALANINE AMINOTRANSFERASE,ALT 74 IU/L (14-63); ALBUMIN 3.7 g/dL (3.4-5.0); ALKALINE PHOSPHATASE 72 U/L (46-116); ASPARTATE AMNIOTRANSFERASE,AST 78 IU/L (15-37); BILIRUBIN TOTAL 0.4 mg/dL (0.2-1.0); BLOOD UREA NITROGEN,BUN 11 mg/dL (7.0-18.0); CARBON DIOXIDE,CO2 25.8 mmol/L (21.0-32.0); CHLORIDE,CL 105 mmol/L (98-107); GLUCOSE RANDOM 83 mg/dL (74-106); POTASSIUM,K 3.6 mmol/L (3.5-5.1); PROTEIN TOTAL,TP 7.3 g/dL (6.4-8.2); SALICYLATE 6.7 mg/dL (0.0-20.0); SODIUM,NA 143 mmol/L (136-148)
[2024-04-24 12:31] LABS: ESTIMATED GFR 101 mL/min (>60)
[2024-04-24] MEDS: Nicotine 21 MG/24 Hr Patch TRDERM ONE (12:49)
[2024-04-24 13:12] LABS: AMPHETAMINES SCREEN, URINE NEGATIVE (CUTOFF=500); BARBITURATE SCREEN,URINE NEGATIVE (CUTOFF=200); BENZODIAZEPINES SCREEN,URINE NEGATIVE (CUTOFF=150); BUPRENORPHINE SCREEN,URINE NEGATIVE (CUTOFF=10); METHADONE SCREEN, URINE NEGATIVE (CUTOFF=200); METHAMPHETAMINES SCREEN, URINE NEGATIVE (CUTOFF=500); OXYCODONE SCREEN,URINE NEGATIVE (CUT0FF=100); PCP SCREEN,URINE NEGATIVE (CUTOFF=25); THC SCREEN,URINE 20 NG/ML NEGATIVE (CUTOFF=50)
== END 2024-04-24 16:18 | disposition home or self-care (01) ==
LOC: MW.ED 11:42
DX: S00.81XA Abrasion of other part of head, initial encounter (principal); R45.851 Suicidal ideations; F10.129 Alcohol abuse with intoxication, unspecified; E11.9 Type 2 diabetes mellitus without complications; F17.210 Nicotine dependence, cigarettes, uncomplicated; Z91.012 Allergy to eggs; Z75.8 Other problems related to medical facilities and other health care; Y90.8 Blood alcohol level of 240 mg/100 ml or more; X58.XXXA Exposure to other specified factors, initial encounter
CPT/HCPCS: 36415; 70450; 70486; 71045; 80053; 80143; 80179; 80305; 80307; 83735; 85025; 93005; 99285; A9270; 99284

== ENCOUNTER 2024-04-25 10:52 | Emergency (ER) | payer SELFPAY ==
[2024-04-25 11:10] LABS: BASOPHILS ABSOLUTE AUTO 0.09 K/uL (0.00-0.20); BASOPHILS PERCENT AUTO 1.3 % (0.0-1.0); EOSINOPHILS ABSOLUTE AUTO 0.14 K/uL (0.00-0.45); EOSINOPHILS PERCENT AUTO 2.1 % (0.0-6.0); HEMATOCRIT 44.9 % (42.0-52.0); HEMOGLOBIN 16.1 g/dL (14.0-18.0); IMMATURE GRAN ABSOLUTE AUTO 0.04 K/uL (0.00-0.05); IMMATURE GRAN PERCENT AUTO 0.6 % (0.0-0.4); LYMPHOCYTES ABSOLUTE AUTO 1.78 K/uL (1.00-4.80); LYMPHOCYTES PERCENT AUTO 26.5 % (24.0-44.0); MEAN CORPUSCULAR HEMOGLOBIN 35.7 pg (28.0-32.0); MEAN CORPUSCULAR HGB CONC 35.9 g/dL (32.0-36.0); MEAN CORPUSCULAR VOLUME 99.6 fL (83.0-99.0); MEAN PLATELET VOLUME 9.5 fL (9.4-12.4); MONOCYTES ABSOLUTE AUTO 0.64 K/uL (0.00-0.80); MONOCYTES PERCENT AUTO 9.5 % (0.0-8.0); NEUTROPHILS ABSOLUTE AUTO 4.03 K/uL (1.80-7.70); PLATELET COUNT,PLT 241 K/uL (150-400); RED BLOOD CELL COUNT 4.51 M/uL (4.52-5.90); WHITE BLOOD CELL COUNT,WBC 6.72 K/uL (3.9-11.3)
[2024-04-25 11:32] LABS: A/G RATIO 1.1 (0.9-1.6); ACETAMINOPHEN <2.0 ug/mL; ALANINE AMINOTRANSFERASE,ALT 76 IU/L (14-63); ALBUMIN 3.8 g/dL (3.4-5.0); ALKALINE PHOSPHATASE 84 U/L (46-116); ASPARTATE AMNIOTRANSFERASE,AST 93 IU/L (15-37); BILIRUBIN TOTAL 0.5 mg/dL (0.2-1.0); BLOOD UREA NITROGEN,BUN 8 mg/dL (7.0-18.0); CALCIUM 8.3 mg/dL (8.5-10.1); CARBON DIOXIDE,CO2 29.7 mmol/L (21.0-32.0); CHLORIDE,CL 103 mmol/L (98-107); EST CRCL DRUG DOSING (CG) 97.31 mL/min; ESTIMATED GFR 101 mL/min (>60); ETHANOL BLOOD MEDICAL 274 mg/dL; GLUCOSE RANDOM 76 mg/dL (74-106); POTASSIUM,K 3.9 mmol/L (3.5-5.1); PROTEIN TOTAL,TP 7.4 g/dL (6.4-8.2); SALICYLATE 6.8 mg/dL (0.0-20.0); SODIUM,NA 144 mmol/L (136-148)
[2024-04-25] MEDS: Nicotine 21 MG/24 Hr Patch TRDERM ONE (11:45)
[2024-04-25] MEDS: chlordiazePOXIDE 25 MG Cap PO ONE ×2 (12:47→18:26)
[2024-04-25] MEDS: Cyclobenzaprine 10 MG Tab PO ONE (18:25)
[2024-04-26] MEDS: chlordiazePOXIDE 25 MG Cap PO SCH ×2 (00:18→01:14)
[2024-04-26] MEDS: diphenhydrAMINE 50 MG Cap PO ONE (00:18)
== END 2024-04-26 06:51 ==
LOC: MW.ED 10:52
DX: R45.851 Suicidal ideations (principal); R78.0 Finding of alcohol in blood; E11.9 Type 2 diabetes mellitus without complications; Z91.012 Allergy to eggs; Z79.899 Other long term (current) drug therapy; Z75.8 Other problems related to medical facilities and other health care; Y90.8 Blood alcohol level of 240 mg/100 ml or more
CPT/HCPCS: 36415; 80053; 80143; 80179; 80307; 85025; 99285; A9270; 99284

== ENCOUNTER 2024-05-06 23:33 | Emergency (ER) | payer SELFPAY | END 2024-05-07 00:02 | disposition left against medical advice (07) | LOC: MW.ED 23:33 | DX: Z53.21 Procedure and treatment not carried out due to patient leaving prior to being seen by health care provider (principal) ==

== ENCOUNTER 2024-05-14 23:00 | Emergency (ER) | payer SELFPAY | END 2024-05-14 23:51 | disposition left against medical advice (07) | LOC: MW.ED 23:00 | DX: Z53.21 Procedure and treatment not carried out due to patient leaving prior to being seen by health care provider (principal) ==

== ENCOUNTER 2024-05-17 22:51 | Emergency (ER) | payer SELFPAY ==
[2024-05-17] MEDS: LORazepam 2 MG/ML SDV IVPUSH ONE (23:48)
[2024-05-17] MEDS: LORazepam 2 MG/ML SDV IM ONE (23:49)
[2024-05-17] MEDS: Haloperidol Lactate 5 MG/ML SDV IM ONE (23:50)
[2024-05-18 00:27] LABS: BASOPHILS ABSOLUTE AUTO 0.03 K/uL (0.00-0.20); BASOPHILS PERCENT AUTO 0.4 % (0.0-1.0); EOSINOPHILS PERCENT AUTO 2.7 % (0.0-6.0); HEMATOCRIT 40.7 % (42.0-52.0); HEMOGLOBIN 14.6 g/dL (14.0-18.0); IMMATURE GRAN ABSOLUTE AUTO 0.06 K/uL (0.00-0.05); IMMATURE GRAN PERCENT AUTO 0.8 % (0.0-0.4); LYMPHOCYTES ABSOLUTE AUTO 2.39 K/uL (1.00-4.80); LYMPHOCYTES PERCENT AUTO 32.4 % (24.0-44.0); MEAN CORPUSCULAR HEMOGLOBIN 35.7 pg (28.0-32.0); MEAN CORPUSCULAR HGB CONC 35.9 g/dL (32.0-36.0); MEAN CORPUSCULAR VOLUME 99.5 fL (83.0-99.0); MONOCYTES ABSOLUTE AUTO 0.52 K/uL (0.00-0.80); NEUTROPHILS ABSOLUTE AUTO 4.18 K/uL (1.80-7.70); NEUTROPHILS PERCENT AUTO 56.7 % (41.0-71.0); PLATELET COUNT,PLT 181 K/uL (150-400); RED BLOOD CELL COUNT 4.09 M/uL (4.52-5.90); WHITE BLOOD CELL COUNT,WBC 7.38 K/uL (3.9-11.3)
[2024-05-18 00:44] LABS: CALCIUM 8.4 mg/dL (8.5-10.1); CARBON DIOXIDE,CO2 23.2 mmol/L (21.0-32.0); CREATININE 0.8 mg/dL (0.8-1.3); EST CRCL DRUG DOSING (CG) 121.64 mL/min; POTASSIUM,K 3.1 mmol/L (3.5-5.1)
[2024-05-18 07:01] LABS: AMPHETAMINES SCREEN, URINE NEGATIVE (CUTOFF=500); BARBITURATE SCREEN,URINE NEGATIVE (CUTOFF=200); BENZODIAZEPINES SCREEN,URINE PRESUMPTIVE POSITIVE (CUTOFF=150); BUPRENORPHINE SCREEN,URINE NEGATIVE (CUTOFF=10); METHADONE SCREEN, URINE NEGATIVE (CUTOFF=200); METHAMPHETAMINES SCREEN, URINE NEGATIVE (CUTOFF=500); OXYCODONE SCREEN,URINE NEGATIVE (CUT0FF=100); PCP SCREEN,URINE NEGATIVE (CUTOFF=25); THC SCREEN,URINE 20 NG/ML PRESUMPTIVE POSITIVE (CUTOFF=50)
== END 2024-05-18 07:22 | disposition home or self-care (01) ==
LOC: MW.ED 22:51
DX: F10.129 Alcohol abuse with intoxication, unspecified (principal); R44.0 Auditory hallucinations; E11.9 Type 2 diabetes mellitus without complications; Z91.012 Allergy to eggs; Y90.8 Blood alcohol level of 240 mg/100 ml or more
CPT/HCPCS: 36415; 80048; 80305; 80307; 85025; 96372; 99284; J1630; J2060

== ENCOUNTER 2024-05-19 09:41 | Emergency (ER) | payer SELFPAY ==
[2024-05-19 10:21] LABS: BASOPHILS ABSOLUTE AUTO 0.03 K/uL (0.00-0.20); BASOPHILS PERCENT AUTO 0.5 % (0.0-1.0); EOSINOPHILS ABSOLUTE AUTO 0.07 K/uL (0.00-0.45); EOSINOPHILS PERCENT AUTO 1.1 % (0.0-6.0); HEMATOCRIT 39.5 % (42.0-52.0); HEMOGLOBIN 14.2 g/dL (14.0-18.0); IMMATURE GRAN ABSOLUTE AUTO 0.05 K/uL (0.00-0.05); IMMATURE GRAN PERCENT AUTO 0.8 % (0.0-0.4); LYMPHOCYTES ABSOLUTE AUTO 1.41 K/uL (1.00-4.80); LYMPHOCYTES PERCENT AUTO 22.8 % (24.0-44.0); MEAN CORPUSCULAR HGB CONC 35.9 g/dL (32.0-36.0); MEAN CORPUSCULAR VOLUME 100.3 fL (83.0-99.0); MEAN PLATELET VOLUME 9.8 fL (9.4-12.4); MONOCYTES ABSOLUTE AUTO 0.51 K/uL (0.00-0.80); MONOCYTES PERCENT AUTO 8.3 % (0.0-8.0); NEUTROPHILS ABSOLUTE AUTO 4.11 K/uL (1.80-7.70); NEUTROPHILS PERCENT AUTO 66.5 % (41.0-71.0); PLATELET COUNT,PLT 177 K/uL (150-400); RED BLOOD CELL COUNT 3.94 M/uL (4.52-5.90); WHITE BLOOD CELL COUNT,WBC 6.18 K/uL (3.9-11.3)
[2024-05-19 10:32] LABS: APPEARANCE,URINE CLEAR; BILIRUBIN,URINE NEGATIVE (NEGATIVE); COLOR,URINE YELLOW; GLUCOSE,URINE NEGATIVE (NEGATIVE); KETONES,URINE NEGATIVE (NEGATIVE); LEUKOCYTE ESTERASE,URINE NEGATIVE (NEGATIVE); NITRITE,URINE NEGATIVE (NEGATIVE); OCCULT BLOOD,URINE NEGATIVE (NEGATIVE); PROTEIN,URINE NEGATIVE (NEGATIVE); UROBILINOGEN,URINE 0.2 EU/dL (<2.0)
[2024-05-19 10:42] LABS: AMPHETAMINES SCREEN, URINE NEGATIVE (CUTOFF=500); BARBITURATE SCREEN,URINE NEGATIVE (CUTOFF=200); BENZODIAZEPINES SCREEN,URINE PRESUMPTIVE POSITIVE (CUTOFF=150); BUPRENORPHINE SCREEN,URINE NEGATIVE (CUTOFF=10); METHADONE SCREEN, URINE NEGATIVE (CUTOFF=200); METHAMPHETAMINES SCREEN, URINE NEGATIVE (CUTOFF=500); OXYCODONE SCREEN,URINE NEGATIVE (CUT0FF=100); PCP SCREEN,URINE NEGATIVE (CUTOFF=25); THC SCREEN,URINE 20 NG/ML PRESUMPTIVE POSITIVE (CUTOFF=50)
[2024-05-19 11:02] LABS: A/G RATIO 1.2 (0.9-1.6); ACETAMINOPHEN <2.0 ug/mL; ALANINE AMINOTRANSFERASE,ALT 43 IU/L (14-63); ALBUMIN 3.8 g/dL (3.4-5.0); ALKALINE PHOSPHATASE 63 U/L (46-116); ASPARTATE AMNIOTRANSFERASE,AST 48 IU/L (15-37); BILIRUBIN TOTAL 0.5 mg/dL (0.2-1.0); BLOOD UREA NITROGEN,BUN 10 mg/dL (7.0-18.0); CALCIUM 9.2 mg/dL (8.5-10.1); CARBON DIOXIDE,CO2 29.6 mmol/L (21.0-32.0); CHLORIDE,CL 103 mmol/L (98-107); EST CRCL DRUG DOSING (CG) 97.31 mL/min; GLUCOSE RANDOM 84 mg/dL (74-106); POTASSIUM,K 3.3 mmol/L (3.5-5.1); PROTEIN TOTAL,TP 7.1 g/dL (6.4-8.2); SODIUM,NA 140 mmol/L (136-148); TSH ULTRASENSITIVE 1.55 uIU/mL (0.36-3.74)
[2024-05-19 11:03] LABS: ESTIMATED GFR 101 mL/min (>60); ETHANOL BLOOD MEDICAL 3 mg/dL
[2024-05-19] MEDS: Potassium Chloride 20 MEQ Tab.ER PO ONE (11:39)
== END 2024-05-19 12:55 ==
LOC: MW.ED 09:41
DX: F32.89 Other specified depressive episodes (principal); F19.10 Other psychoactive substance abuse, uncomplicated; E11.9 Type 2 diabetes mellitus without complications; F17.210 Nicotine dependence, cigarettes, uncomplicated; Z75.8 Other problems related to medical facilities and other health care; Z91.012 Allergy to eggs
CPT/HCPCS: 36415; 80053; 80143; 80179; 80305; 80307; 81003; 84443; 85025; 87428; 93005; 99285; A9270; 93010

== ENCOUNTER 2024-05-31 18:52 | Emergency (ER) | payer BC | END 2024-05-31 20:19 | disposition home or self-care (01) | LOC: MW.ED 18:52 | DX: S60.511A Abrasion of right hand, initial encounter (principal); E11.9 Type 2 diabetes mellitus without complications; Z91.012 Allergy to eggs; X58.XXXA Exposure to other specified factors, initial encounter | CPT/HCPCS: 99282; 99284 ==

== ENCOUNTER 2024-06-01 19:12 | Emergency (ER) | payer BC | END 2024-06-01 19:35 | disposition left against medical advice (07) | LOC: MW.ED 19:12 | DX: Z53.21 Procedure and treatment not carried out due to patient leaving prior to being seen by health care provider (principal) ==

== ENCOUNTER 2024-06-06 16:42 | Emergency (ER) | payer BC ==
[2024-06-06 17:24] LABS: BASOPHILS ABSOLUTE AUTO 0.03 K/uL (0.00-0.20); BASOPHILS PERCENT AUTO 0.4 % (0.0-1.0); EOSINOPHILS ABSOLUTE AUTO 0.04 K/uL (0.00-0.45); EOSINOPHILS PERCENT AUTO 0.6 % (0.0-6.0); HEMATOCRIT 48.8 % (42.0-52.0); HEMOGLOBIN 17.7 g/dL (14.0-18.0); IMMATURE GRAN ABSOLUTE AUTO 0.04 K/uL (0.00-0.05); IMMATURE GRAN PERCENT AUTO 0.6 % (0.0-0.4); LYMPHOCYTES PERCENT AUTO 24.8 % (24.0-44.0); MEAN CORPUSCULAR HEMOGLOBIN 34.9 pg (28.0-32.0); MEAN CORPUSCULAR HGB CONC 36.3 g/dL (32.0-36.0); MEAN CORPUSCULAR VOLUME 96.3 fL (83.0-99.0); MEAN PLATELET VOLUME 9.3 fL (9.4-12.4); MONOCYTES PERCENT AUTO 8.3 % (0.0-8.0); NEUTROPHILS ABSOLUTE AUTO 4.76 K/uL (1.80-7.70); NEUTROPHILS PERCENT AUTO 65.3 % (41.0-71.0); PLATELET COUNT,PLT 360 K/uL (150-400); RED BLOOD CELL COUNT 5.07 M/uL (4.52-5.90); WHITE BLOOD CELL COUNT,WBC 7.27 K/uL (3.9-11.3)
[2024-06-06 17:50] LABS: A/G RATIO 0.9 (0.9-1.6); ALANINE AMINOTRANSFERASE,ALT 40 IU/L (14-63); ALKALINE PHOSPHATASE 89 U/L (46-116); ASPARTATE AMNIOTRANSFERASE,AST 79 IU/L (15-37); BILIRUBIN TOTAL 0.8 mg/dL (0.2-1.0); BLOOD UREA NITROGEN,BUN 5 mg/dL (7.0-18.0); CALCIUM 9.3 mg/dL (8.5-10.1); CHLORIDE,CL 99 mmol/L (98-107); CREATININE 0.9 mg/dL (0.8-1.3); GLUCOSE RANDOM 97 mg/dL (74-106); POTASSIUM,K 3.8 mmol/L (3.5-5.1); PROTEIN TOTAL,TP 8.3 g/dL (6.4-8.2); SODIUM,NA 137 mmol/L (136-148)
[2024-06-06 17:53] LABS: ESTIMATED GFR 115 mL/min (>60)
[2024-06-06] MEDS: Sodium Chloride 0.9% 1,000 ML IV ONE (19:44)
[2024-06-06] MEDS: Ondansetron 4 MG/2 ML SDV IVPUSH ONE (19:44)
[2024-06-06] MEDS: LORazepam 2 MG/ML SDV IVPUSH ONE (19:44)
[2024-06-06] MEDS: Iopamidol 755 MG/ML 500 ML Multipack Bottle IVPUSH ONE (20:11)
[2024-06-06] MEDS: Ketorolac 30 MG/ML SDV IVPUSH ONE (23:07)
== END 2024-06-07 00:07 | disposition home or self-care (01) ==
LOC: MW.ED 16:42
DX: R07.89 Other chest pain (principal); E11.9 Type 2 diabetes mellitus without complications; F17.210 Nicotine dependence, cigarettes, uncomplicated; Z91.012 Allergy to eggs
CPT/HCPCS: 36415; 71045; 71275; 80053; 82947; 84484; 85025; 85379; 93005; 96361; 96374; 96375; 99285; J1885; J2060; J2405; J7030; Q9967

== ENCOUNTER 2024-06-12 19:55 | Emergency (ER) | payer BC ==
[2024-06-12] MEDS ORDERED: Sodium Chloride 0.9% 10 ML Syringe FLUSH PRN ×2 (21:38)
[2024-06-12] MEDS ORDERED: Sodium Chloride 0.9% 2.5 ML Syringe FLUSH PRN ×2 (21:38)
[2024-06-12 22:30] LABS: AMPHETAMINES SCREEN, URINE NEGATIVE (CUTOFF=500); BARBITURATE SCREEN,URINE NEGATIVE (CUTOFF=200); BENZODIAZEPINES SCREEN,URINE NEGATIVE (CUTOFF=150); BUPRENORPHINE SCREEN,URINE NEGATIVE (CUTOFF=10); METHADONE SCREEN, URINE NEGATIVE (CUTOFF=200); METHAMPHETAMINES SCREEN, URINE NEGATIVE (CUTOFF=500); OXYCODONE SCREEN,URINE NEGATIVE (CUT0FF=100); PCP SCREEN,URINE NEGATIVE (CUTOFF=25); THC SCREEN,URINE 20 NG/ML NEGATIVE (CUTOFF=50)
[2024-06-12 23:30] LABS: BASOPHILS ABSOLUTE AUTO 0.06 K/uL (0.00-0.20); BASOPHILS PERCENT AUTO 0.7 % (0.0-1.0); EOSINOPHILS ABSOLUTE AUTO 0.07 K/uL (0.00-0.45); EOSINOPHILS PERCENT AUTO 0.9 % (0.0-6.0); HEMATOCRIT 45.3 % (42.0-52.0); HEMOGLOBIN 15.8 g/dL (14.0-18.0); IMMATURE GRAN ABSOLUTE AUTO 0.05 K/uL (0.00-0.05); IMMATURE GRAN PERCENT AUTO 0.6 % (0.0-0.4); MEAN CORPUSCULAR HEMOGLOBIN 34.6 pg (28.0-32.0); MEAN CORPUSCULAR HGB CONC 34.9 g/dL (32.0-36.0); MEAN CORPUSCULAR VOLUME 99.1 fL (83.0-99.0); MEAN PLATELET VOLUME 9.8 fL (9.4-12.4); MONOCYTES ABSOLUTE AUTO 0.84 K/uL (0.00-0.80); MONOCYTES PERCENT AUTO 10.4 % (0.0-8.0); NEUTROPHILS ABSOLUTE AUTO 3.68 K/uL (1.80-7.70); NEUTROPHILS PERCENT AUTO 45.4 % (41.0-71.0); PLATELET COUNT,PLT 133 K/uL (150-400); RED BLOOD CELL COUNT 4.57 M/uL (4.52-5.90)
[2024-06-12 23:54] LABS: ACETAMINOPHEN <2.0 ug/mL; ALANINE AMINOTRANSFERASE,ALT 44 IU/L (14-63); ALBUMIN 3.7 g/dL (3.4-5.0); ALKALINE PHOSPHATASE 64 U/L (46-116); ASPARTATE AMNIOTRANSFERASE,AST 44 IU/L (15-37); BILIRUBIN TOTAL 0.5 mg/dL (0.2-1.0); BLOOD UREA NITROGEN,BUN 9 mg/dL (7.0-18.0); CALCIUM 8.3 mg/dL (8.5-10.1); CARBON DIOXIDE,CO2 24.5 mmol/L (21.0-32.0); CHLORIDE,CL 107 mmol/L (98-107); CREATINE KINASE,CK 221 U/L (26-308); CREATININE 0.9 mg/dL (0.8-1.3); EST CRCL DRUG DOSING (CG) 110.42 mL/min; ESTIMATED GFR 115 mL/min (>60); ETHANOL BLOOD MEDICAL 389 mg/dL; GLUCOSE RANDOM 74 mg/dL (74-106); POTASSIUM,K 3.3 mmol/L (3.5-5.1); PROTEIN TOTAL,TP 7.5 g/dL (6.4-8.2); SALICYLATE 6.4 mg/dL (0.0-20.0); SODIUM,NA 148 mmol/L (136-148)
== END 2024-06-13 01:07 ==
LOC: MW.ED 19:55
DX: F32.A Depression, unspecified (principal); E11.9 Type 2 diabetes mellitus without complications; Z86.16 Personal history of COVID-19; Z91.012 Allergy to eggs
CPT/HCPCS: 36415; 70450; 70450-26; 70486; 70486-26; 71045; 71045-26; 80053; 80143; 80179; 80305-QW; 80307; 82550; 85025; 99283; 99284

== ENCOUNTER 2024-06-16 19:24 | Emergency (ER) | payer BC ==
[2024-06-17 00:32] LABS: AMPHETAMINES SCREEN, URINE NEGATIVE (CUTOFF=500); BARBITURATE SCREEN,URINE NEGATIVE (CUTOFF=200); BENZODIAZEPINES SCREEN,URINE NEGATIVE (CUTOFF=150); BUPRENORPHINE SCREEN,URINE NEGATIVE (CUTOFF=10); METHADONE SCREEN, URINE NEGATIVE (CUTOFF=200); METHAMPHETAMINES SCREEN, URINE NEGATIVE (CUTOFF=500); OXYCODONE SCREEN,URINE NEGATIVE (CUT0FF=100); PCP SCREEN,URINE NEGATIVE (CUTOFF=25); THC SCREEN,URINE 20 NG/ML PRESUMPTIVE POSITIVE (CUTOFF=50)
[2024-06-17 00:54] LABS: BASOPHILS ABSOLUTE AUTO 0.03 K/uL (0.00-0.20); BASOPHILS PERCENT AUTO 0.6 % (0.0-1.0); EOSINOPHILS ABSOLUTE AUTO 0.05 K/uL (0.00-0.45); HEMATOCRIT 41.9 % (42.0-52.0); HEMOGLOBIN 14.9 g/dL (14.0-18.0); IMMATURE GRAN ABSOLUTE AUTO 0.05 K/uL (0.00-0.05); LYMPHOCYTES ABSOLUTE AUTO 2.02 K/uL (1.00-4.80); LYMPHOCYTES PERCENT AUTO 39.1 % (24.0-44.0); MEAN CORPUSCULAR HEMOGLOBIN 35.2 pg (28.0-32.0); MEAN CORPUSCULAR HGB CONC 35.6 g/dL (32.0-36.0); MEAN CORPUSCULAR VOLUME 99.1 fL (83.0-99.0); MEAN PLATELET VOLUME 10.1 fL (9.4-12.4); MONOCYTES ABSOLUTE AUTO 0.67 K/uL (0.00-0.80); NEUTROPHILS ABSOLUTE AUTO 2.34 K/uL (1.80-7.70); NEUTROPHILS PERCENT AUTO 45.3 % (41.0-71.0); PLATELET COUNT,PLT 176 K/uL (150-400); RED BLOOD CELL COUNT 4.23 M/uL (4.52-5.90); WHITE BLOOD CELL COUNT,WBC 5.16 K/uL (3.9-11.3)
[2024-06-17 01:49] LABS: ACETAMINOPHEN <2.0 ug/mL; ALANINE AMINOTRANSFERASE,ALT 38 IU/L (14-63); ALBUMIN 3.6 g/dL (3.4-5.0); ALKALINE PHOSPHATASE 52 U/L (46-116); ASPARTATE AMNIOTRANSFERASE,AST 31 IU/L (15-37); BILIRUBIN TOTAL 0.5 mg/dL (0.2-1.0); BLOOD UREA NITROGEN,BUN 7 mg/dL (7.0-18.0); CALCIUM 8.6 mg/dL (8.5-10.1); CARBON DIOXIDE,CO2 27.4 mmol/L (21.0-32.0); CHLORIDE,CL 103 mmol/L (98-107); CREATININE 0.9 mg/dL (0.8-1.3); ETHANOL BLOOD MEDICAL 46 mg/dL; GLUCOSE RANDOM 83 mg/dL (74-106); POTASSIUM,K 3.2 mmol/L (3.5-5.1); PROTEIN TOTAL,TP 7.1 g/dL (6.4-8.2); SALICYLATE 5.7 mg/dL (0.0-20.0); SODIUM,NA 142 mmol/L (136-148); T3 FREE 3.44 pg/mL (2.18-3.98); T4 FREE 0.85 ng/dL (0.76-1.46); TSH ULTRASENSITIVE 3.21 uIU/mL (0.36-3.74)
[2024-06-17 01:50] LABS: ESTIMATED GFR 115 mL/min (>60)
[2024-06-17 01:54] LABS: APPEARANCE,URINE CLEAR; COLOR,URINE YELLOW; GLUCOSE,URINE NEGATIVE (NEGATIVE); PROTEIN,URINE NEGATIVE (NEGATIVE)
[2024-06-17 01:55] LABS: BILIRUBIN,URINE NEGATIVE (NEGATIVE); KETONES,URINE NEGATIVE (NEGATIVE); LEUKOCYTE ESTERASE,URINE NEGATIVE (NEGATIVE); NITRITE,URINE NEGATIVE (NEGATIVE); OCCULT BLOOD,URINE NEGATIVE (NEGATIVE); UROBILINOGEN,URINE <2.0 EU/dL (<2.0)
== END 2024-06-17 06:41 ==
LOC: MW.ED 19:24
DX: F10.10 Alcohol abuse, uncomplicated (principal); F32.A Depression, unspecified; R45.851 Suicidal ideations; E11.9 Type 2 diabetes mellitus without complications; F17.210 Nicotine dependence, cigarettes, uncomplicated; Z75.8 Other problems related to medical facilities and other health care; Z91.012 Allergy to eggs
CPT/HCPCS: 36415; 80053; 80143; 80179; 80305-QW; 80307; 81003; 83735; 84439; 84443; 84481; 85025; 87428-QW; 99284; 99285

== ENCOUNTER 2024-07-06 12:23 | Emergency (ER) | payer BC ==
[2024-07-06] MEDS ORDERED: Sodium Chloride 0.9% 2.5 ML Syringe FLUSH PRN (12:26)
[2024-07-06] MEDS ORDERED: Sodium Chloride 0.9% 10 ML Syringe FLUSH PRN (12:26)
[2024-07-06] MEDS: Sodium Chloride 0.9% 1,000 ML IV ONE (13:20)
[2024-07-06 13:25] LABS: BASOPHILS ABSOLUTE AUTO 0.06 K/uL (0.00-0.20); BASOPHILS PERCENT AUTO 0.7 % (0.0-1.0); EOSINOPHILS PERCENT AUTO 2.2 % (0.0-6.0); HEMOGLOBIN 16.9 g/dL (14.0-18.0); IMMATURE GRAN ABSOLUTE AUTO 0.08 K/uL (0.00-0.05); IMMATURE GRAN PERCENT AUTO 0.9 % (0.0-0.4); LYMPHOCYTES ABSOLUTE AUTO 3.17 K/uL (1.00-4.80); MEAN CORPUSCULAR HEMOGLOBIN 34.9 pg (28.0-32.0); MEAN CORPUSCULAR HGB CONC 34.5 g/dL (32.0-36.0); MEAN CORPUSCULAR VOLUME 101.2 fL (83.0-99.0); MONOCYTES ABSOLUTE AUTO 0.55 K/uL (0.00-0.80); MONOCYTES PERCENT AUTO 6.1 % (0.0-8.0); NEUTROPHILS ABSOLUTE AUTO 5.01 K/uL (1.80-7.70); NEUTROPHILS PERCENT AUTO 55.1 % (41.0-71.0); PLATELET COUNT,PLT 187 K/uL (150-400); RED BLOOD CELL COUNT 4.84 M/uL (4.52-5.90); WHITE BLOOD CELL COUNT,WBC 9.07 K/uL (3.9-11.3)
[2024-07-06 13:54] LABS: A/G RATIO 1.1 (0.9-1.6); ALBUMIN 4.1 g/dL (3.4-5.0); BILIRUBIN TOTAL 0.3 mg/dL (0.2-1.0); CALCIUM 8.2 mg/dL (8.5-10.1); CARBON DIOXIDE,CO2 27.5 mmol/L (21.0-32.0); EST CRCL DRUG DOSING (CG) 97.31 mL/min; MAGNESIUM 2.4 mg/dL (1.8-2.4); POTASSIUM,K 3.5 mmol/L (3.5-5.1)
== END 2024-07-06 16:39 | disposition home or self-care (01) ==
LOC: MW.ED 12:23
DX: F10.10 Alcohol abuse, uncomplicated (principal); F32.89 Other specified depressive episodes; E11.9 Type 2 diabetes mellitus without complications; Z91.012 Allergy to eggs; Z75.8 Other problems related to medical facilities and other health care; Y90.8 Blood alcohol level of 240 mg/100 ml or more
CPT/HCPCS: 36415; 80053; 80307; 83735; 85025; 96360; 96361; 99285; J7030

== ENCOUNTER 2024-07-08 09:30 | Emergency (ER) | payer BC ==
[2024-07-08] MEDS: Sodium Chloride 0.9% 1,000 ML IV STA (09:58)
[2024-07-08 10:11] LABS: BASOPHILS ABSOLUTE AUTO 0.06 K/uL (0.00-0.20); BASOPHILS PERCENT AUTO 0.8 % (0.0-1.0); EOSINOPHILS ABSOLUTE AUTO 0.03 K/uL (0.00-0.45); EOSINOPHILS PERCENT AUTO 0.4 % (0.0-6.0); HEMATOCRIT 43.6 % (42.0-52.0); HEMOGLOBIN 15.9 g/dL (14.0-18.0); IMMATURE GRAN ABSOLUTE AUTO 0.04 K/uL (0.00-0.05); IMMATURE GRAN PERCENT AUTO 0.5 % (0.0-0.4); LYMPHOCYTES ABSOLUTE AUTO 1.46 K/uL (1.00-4.80); LYMPHOCYTES PERCENT AUTO 19.3 % (24.0-44.0); MEAN CORPUSCULAR HEMOGLOBIN 34.9 pg (28.0-32.0); MEAN CORPUSCULAR HGB CONC 36.5 g/dL (32.0-36.0); MEAN CORPUSCULAR VOLUME 95.8 fL (83.0-99.0); MEAN PLATELET VOLUME 9.8 fL (9.4-12.4); MONOCYTES ABSOLUTE AUTO 0.68 K/uL (0.00-0.80); NEUTROPHILS ABSOLUTE AUTO 5.31 K/uL (1.80-7.70); PLATELET COUNT,PLT 172 K/uL (150-400); RED BLOOD CELL COUNT 4.55 M/uL (4.52-5.90); WHITE BLOOD CELL COUNT,WBC 7.58 K/uL (3.9-11.3)
[2024-07-08 10:33] LABS: ALANINE AMINOTRANSFERASE,ALT 31 IU/L (14-63); ALBUMIN 3.8 g/dL (3.4-5.0); ALKALINE PHOSPHATASE 59 U/L (46-116); ASPARTATE AMNIOTRANSFERASE,AST 30 IU/L (15-37); BILIRUBIN TOTAL 1.2 mg/dL (0.2-1.0); BLOOD UREA NITROGEN,BUN 14 mg/dL (7.0-18.0); CALCIUM 9.3 mg/dL (8.5-10.1); CARBON DIOXIDE,CO2 22.7 mmol/L (21.0-32.0); CHLORIDE,CL 95 mmol/L (98-107); CREATININE 1.1 mg/dL (0.8-1.3); EST CRCL DRUG DOSING (CG) 88.47 mL/min; ESTIMATED GFR 90 mL/min (>60); GLUCOSE RANDOM 118 mg/dL (74-106); MAGNESIUM 1.7 mg/dL (1.8-2.4); POTASSIUM,K 4.1 mmol/L (3.5-5.1); PROTEIN TOTAL,TP 7.6 g/dL (6.4-8.2); SODIUM,NA 133 mmol/L (136-148)
[2024-07-08 10:34] LABS: ETHANOL BLOOD MEDICAL < 3.0 mg/dL
[2024-07-08] MEDS ORDERED: Magnesium Sulfate (4.06 MEQ/ML) 5 GM/10 ML SDV IV ONE (10:37)
[2024-07-08] MEDS: Magnesium Sulf/Wat 2 GM/50 mL 2 GM in Premix Bag 1 BAG IV ONE (11:03)
== END 2024-07-08 13:18 | disposition home or self-care (01) ==
LOC: MW.ED 09:30
DX: R42 Dizziness and giddiness (principal); R11.2 Nausea with vomiting, unspecified; E11.9 Type 2 diabetes mellitus without complications; Z91.012 Allergy to eggs; Z75.8 Other problems related to medical facilities and other health care
CPT/HCPCS: 36415; 71045; 80053; 80307; 83735; 84484; 85025; 93005; 96361; 96365; 99284; J3475; J7030; 93010; 99283

== ENCOUNTER 2024-07-20 13:55 | Emergency (ER) | payer BC ==
[2024-07-20] MEDS: Nicotine 21 MG/24 Hr Patch TRDERM STA (16:37)
== END 2024-07-20 16:40 ==
LOC: MW.ED 13:55
DX: Z02.89 Encounter for other administrative examinations (principal); F10.10 Alcohol abuse, uncomplicated; F17.218 Nicotine dependence, cigarettes, with other nicotine-induced disorders; E11.9 Type 2 diabetes mellitus without complications; Z91.012 Allergy to eggs; Z79.899 Other long term (current) drug therapy; Z75.8 Other problems related to medical facilities and other health care; Y90.9 Presence of alcohol in blood, level not specified
CPT/HCPCS: 99284; A9270

== ENCOUNTER 2024-07-21 04:30 | Emergency (ER) | payer BC ==
[2024-07-21 05:16] LABS: BASOPHILS ABSOLUTE AUTO 0.04 K/uL (0.00-0.20); BASOPHILS PERCENT AUTO 0.6 % (0.0-1.0); EOSINOPHILS ABSOLUTE AUTO 0.13 K/uL (0.00-0.45); EOSINOPHILS PERCENT AUTO 1.9 % (0.0-6.0); HEMOGLOBIN 15.9 g/dL (14.0-18.0); IMMATURE GRAN ABSOLUTE AUTO 0.02 K/uL (0.00-0.05); IMMATURE GRAN PERCENT AUTO 0.3 % (0.0-0.4); LYMPHOCYTES ABSOLUTE AUTO 2.21 K/uL (1.00-4.80); LYMPHOCYTES PERCENT AUTO 32.8 % (24.0-44.0); MEAN CORPUSCULAR HEMOGLOBIN 34.6 pg (28.0-32.0); MEAN CORPUSCULAR HGB CONC 35.3 g/dL (32.0-36.0); MONOCYTES ABSOLUTE AUTO 0.61 K/uL (0.00-0.80); MONOCYTES PERCENT AUTO 9.1 % (0.0-8.0); NEUTROPHILS ABSOLUTE AUTO 3.73 K/uL (1.80-7.70); NEUTROPHILS PERCENT AUTO 55.3 % (41.0-71.0); PLATELET COUNT,PLT 249 K/uL (150-400); RED BLOOD CELL COUNT 4.59 M/uL (4.52-5.90); WHITE BLOOD CELL COUNT,WBC 6.74 K/uL (3.9-11.3)
[2024-07-21 05:19] LABS: APPEARANCE,URINE CLEAR; BILIRUBIN,URINE NEGATIVE (NEGATIVE); COLOR,URINE YELLOW; GLUCOSE,URINE NEGATIVE (NEGATIVE); KETONES,URINE TRACE mg/dL (NEGATIVE); LEUKOCYTE ESTERASE,URINE NEGATIVE (NEGATIVE); NITRITE,URINE NEGATIVE (NEGATIVE); OCCULT BLOOD,URINE NEGATIVE (NEGATIVE); PROTEIN,URINE NEGATIVE (NEGATIVE); UROBILINOGEN,URINE 0.2 EU/dL (<2.0)
[2024-07-21 05:27] LABS: AMPHETAMINES SCREEN, URINE NEGATIVE (CUTOFF=500); BARBITURATE SCREEN,URINE NEGATIVE (CUTOFF=200); BENZODIAZEPINES SCREEN,URINE NEGATIVE (CUTOFF=150); BUPRENORPHINE SCREEN,URINE NEGATIVE (CUTOFF=10); METHADONE SCREEN, URINE NEGATIVE (CUTOFF=200); METHAMPHETAMINES SCREEN, URINE NEGATIVE (CUTOFF=500); OXYCODONE SCREEN,URINE NEGATIVE (CUT0FF=100); PCP SCREEN,URINE NEGATIVE (CUTOFF=25); THC SCREEN,URINE 20 NG/ML NEGATIVE (CUTOFF=50)
[2024-07-21 05:37] LABS: ACETAMINOPHEN <2.0 ug/mL; ALANINE AMINOTRANSFERASE,ALT 27 IU/L (14-63); ALBUMIN 3.9 g/dL (3.4-5.0); ALKALINE PHOSPHATASE 87 U/L (46-116); ASPARTATE AMNIOTRANSFERASE,AST 34 IU/L (15-37); BILIRUBIN TOTAL 0.6 mg/dL (0.2-1.0); BLOOD UREA NITROGEN,BUN 11 mg/dL (7.0-18.0); CARBON DIOXIDE,CO2 25.5 mmol/L (21.0-32.0); CHLORIDE,CL 98 mmol/L (98-107); EST CRCL DRUG DOSING (CG) 97.31 mL/min; ETHANOL BLOOD MEDICAL 79 mg/dL; GLUCOSE RANDOM 65 mg/dL (74-106); MAGNESIUM 1.5 mg/dL (1.8-2.4); POTASSIUM,K 3.7 mmol/L (3.5-5.1); PROTEIN TOTAL,TP 7.7 g/dL (6.4-8.2); SALICYLATE 7.5 mg/dL (0.0-20.0); SODIUM,NA 138 mmol/L (136-148)
[2024-07-21 05:47] LABS: TSH ULTRASENSITIVE 1.54 uIU/mL (0.36-3.74)
[2024-07-21 06:00] LABS: ESTIMATED GFR 101 mL/min (>60)
[2024-07-21] MEDS: Magnesium Oxide 400 MG Tab PO ONE (06:26)
[2024-07-21] MEDS ORDERED: chlordiazePOXIDE 25 MG Cap PO PRN (06:43)
== END 2024-07-21 07:53 ==
LOC: MW.ED 04:30
DX: Z02.89 Encounter for other administrative examinations (principal); E11.9 Type 2 diabetes mellitus without complications; Z79.899 Other long term (current) drug therapy; Z91.012 Allergy to eggs
CPT/HCPCS: 36415; 80053; 80143; 80179; 80305; 80307; 81003; 83735; 84443; 85025; 87428; 99285; A9270; 99283

== ENCOUNTER 2024-07-30 06:10 | Emergency (ER) | payer BC ==
[2024-07-30] MEDS: Ketorolac 30 MG/ML SDV IVPUSH ONE (06:58)
[2024-07-30 07:04] LABS: BASOPHILS ABSOLUTE AUTO 0.06 K/uL (0.00-0.20); BASOPHILS PERCENT AUTO 0.7 % (0.0-1.0); EOSINOPHILS ABSOLUTE AUTO 0.09 K/uL (0.00-0.45); HEMATOCRIT 41.5 % (42.0-52.0); HEMOGLOBIN 14.8 g/dL (14.0-18.0); IMMATURE GRAN ABSOLUTE AUTO 0.05 K/uL (0.00-0.05); IMMATURE GRAN PERCENT AUTO 0.6 % (0.0-0.4); LYMPHOCYTES ABSOLUTE AUTO 2.38 K/uL (1.00-4.80); LYMPHOCYTES PERCENT AUTO 26.5 % (24.0-44.0); MEAN CORPUSCULAR HEMOGLOBIN 34.2 pg (28.0-32.0); MEAN CORPUSCULAR HGB CONC 35.7 g/dL (32.0-36.0); MEAN CORPUSCULAR VOLUME 95.8 fL (83.0-99.0); MEAN PLATELET VOLUME 9.1 fL (9.4-12.4); MONOCYTES ABSOLUTE AUTO 1.21 K/uL (0.00-0.80); MONOCYTES PERCENT AUTO 13.5 % (0.0-8.0); NEUTROPHILS ABSOLUTE AUTO 5.18 K/uL (1.80-7.70); NEUTROPHILS PERCENT AUTO 57.7 % (41.0-71.0); PLATELET COUNT,PLT 256 K/uL (150-400); RED BLOOD CELL COUNT 4.33 M/uL (4.52-5.90); WHITE BLOOD CELL COUNT,WBC 8.97 K/uL (3.9-11.3)
[2024-07-30 07:35] LABS: A/G RATIO 1.1 (0.9-1.6); ALBUMIN 3.9 g/dL (3.4-5.0); BILIRUBIN TOTAL 0.6 mg/dL (0.2-1.0); CALCIUM 8.6 mg/dL (8.5-10.1); CARBON DIOXIDE,CO2 26.9 mmol/L (21.0-32.0); EST CRCL DRUG DOSING (CG) 97.31 mL/min; POTASSIUM,K 3.8 mmol/L (3.5-5.1); PROTEIN TOTAL,TP 7.5 g/dL (6.4-8.2)
[2024-07-30] MEDS: Lidocaine 4% Patch TOP ONE (09:30)
== END 2024-07-30 09:36 | disposition home or self-care (01) ==
LOC: MW.ED 06:10
DX: S30.0XXA Contusion of lower back and pelvis, initial encounter (principal); F10.120 Alcohol abuse with intoxication, uncomplicated; E11.9 Type 2 diabetes mellitus without complications; Z79.899 Other long term (current) drug therapy; Z91.012 Allergy to eggs; X58.XXXA Exposure to other specified factors, initial encounter
CPT/HCPCS: 36415; 70450; 72128; 72131; 74177; 80053; 80307; 85025; 86850; 86900; 86901; 96374; 99284; A9270; J1885